=== PATIENT | male | born 1980 ===

== ENCOUNTER 2021-09-11 14:21 | Emergency (ER) | payer OTHER ==
--- NOTE | 2021-09-11 14:47 | Emergency Department Report ---
ED General Adult HPI - General Chief complaint: Extremity Injury, Lower Stated complaint: foot Time Seen by Provider: 09/11/21 14:36 Source: patient Mode of arrival: Ambulatory Limitations: No Limitations - History of Present Illness Initial comments: 40-year-old -Martiniquais male patient presents with complaints of left foot pain x3 months. He denies any injury, numbness/tingling/weakness, or fever/chills/sweats. No past medical history per patient including diabetes. He rates his pain as a 9/10 in severity and states he has been unable to wear closed foot shoes since the onset of his pain. He is not currently following with a PCP or ranch hand. No prior medical history per patient. Ibuprofen and Tylenol are not helping per patient. - Related Data Previous Rx's Medication Instructions Recorded Last Taken Type Acetaminophen/Codeine [Tylenol 1 tab PO Q8H PRN #6 tab 09/11/21 Unknown Rx /Codeine # 3 tab] Doxycycline Monohydrate 100 mg PO BID 10 Days #20 capsule 09/11/21 Unknown Rx Naproxen 500 mg PO BID PRN #20 tablet 09/11/21 Unknown Rx Allergies Allergy/AdvReac Type Severity Reaction Status Date / Time No Known Allergies Allergy Verified 02/05/16 00:37 ED Review of Systems ROS: Stated complaint: foot Other details as noted in HPI Constitutional: denies: chills, fever Musculoskeletal: arthralgia Neurological: denies: numbness, paresthesias ED Past Medical Hx - Past Medical History Hx Psychiatric Treatment: Yes - Social History Smoking Status: Current Every Day Smoker Substance Use Type: Alcohol, Cocaine - Medications Home Medications: Home Medications Medication Instructions Recorded Confirmed Last Taken Type Acetaminophen/Codeine [Tylenol 1 tab PO Q8H PRN #6 tab 09/11/21 Unknown Rx /Codeine # 3 tab] Doxycycline Monohydrate 100 mg PO BID 10 Days #20 capsule 09/11/21 Unknown Rx Naproxen 500 mg PO BID PRN #20 tablet 09/11/21 Unknown Rx ED Physical Exam - General Limitations: No Limitations General appearance: alert, in no apparent distress - Head Head exam: Present: atraumatic, normocephalic - Eye Eye exam: Present: normal appearance. Absent: scleral icterus - Respiratory Respiratory exam: Absent: respiratory distress - Cardiovascular Cardiovascular Exam: Present: regular rate - Expanded Lower Extremity Exam Left Foot/Toe exam: Present: tenderness (Tender callus noted to lateral fifth MCP joint with mild erythema; no cellulitic changes are noted or drainage/obvious deformities) Neuro vascular tendon exam: Present: no vascular compromise. Absent: pulse deficit, motor deficit, sensory deficit, pallor Gait: Positive: antalgic (Mildly ) - Neurological Exam Neurological exam: Present: alert, oriented X3 - Psychiatric Psychiatric exam: Present: normal affect, normal mood - Skin Skin exam: Present: warm, dry, intact ED Course Vital Signs 09/11/21 09/11/21 14:27 17:10 Temperature 98.1 F 98.3 F Pulse Rate 107 H 88 Respiratory 16 16 Rate Blood Pressure 127/84 Blood Pressure 103/76 [Right] O2 Sat by Pulse 100 98 Oximetry ED Medical Decision Making - Radiology Data Radiology results: report reviewed LEFT FOOT 3 VIEWS INDICATION / CLINICAL INFORMATION: 5th MTP pain x 3 months. [place]-like area on soft tissue, painful, cannot wear closed shoes. COMPARISON: None available. FINDINGS: BONES / JOINT(S): The joint spaces are well-maintained. There is a small spur a t the insertion of the Achilles tendon on the calcaneus. There is no evidence of acute fracture, subluxation or destructive lesion. SOFT TISSUES: There is localized soft tissue swelling along the lateral margin of the fifth metatarsophalangeal joint. No abnormal calcification is present. ADDITIONAL FINDINGS: None. - Medical Decision Making 40-year-old -Martiniquais male patient presents with complaints of left foot pain x3 months. He denies any injury, numbness/tingling/weakness, or fever/chills/sweats. No past medical history per patient including diabetes. He rates his pain as a 9/10 in severity and states he has been unable to wear closed foot shoes since the onset of his pain. He is not currently following with a PCP or ranch hand. No prior medical history per patient. Ibuprofen and Tylenol are not helping per patient. Mildly erythemic callus noted on exam with tenderness to palpation. X-rays negative for any acute bony abnormality however shows some soft tissue swelling. Exam does not appear to be consistent with cellulitis, however given mild erythema and soft tissue swelling noted on x-ray, will cover for infection with doxycycline. Recommend patient follows up with podiatry for further evaluation and treatment of callus. He is otherwise well-appearing, his vitals are normal, he is stable for discharge home. Strict return precautions were discussed in detail with patient who verbalizes understanding. Critical care attestation.: If time is entered above; I have spent that time in minutes in the direct care of this critically ill patient, excluding procedure time. ED Disposition Clinical Impression: Left foot pain, Foot callus Disposition: HOME / SELF CARE / HOMELESS Is pt being admited?: No Condition: Stable Prescriptions: Doxycycline Monohydrate 100 mg PO BID 10 Days #20 capsule Naproxen 500 mg PO BID PRN #20 tablet PRN Reason: pain Acetaminophen/Codeine [Tylenol /Codeine # 3 tab] 1 tab PO Q8H PRN #6 tab PRN Reason: Pain , Severe (7-10) Referrals: GRABIEL SANTA DPM [Staff Physician] - 3-5 Days
--- NOTE | 2021-09-11 15:20 | XRay Report ---
LEFT FOOT 3 VIEWS INDICATION / CLINICAL INFORMATION: 5th MTP pain x 3 months. [place]-like area on soft tissue, painful, c annot wear closed shoes. COMPARISON: None available. FINDINGS: BONES / JOINT(S): The joint spaces are well-maintained. There is a small spur at the insertion of the Achilles tendon on the calcaneus. There is no evidence of acute fracture, subluxation or destructive lesion. SOFT TISSUES: There is localized soft tissue swelling along the lateral margin of the fifth metatarso phalangeal joint. No abnormal calcification is present. ADDITIONAL FINDINGS: None. Signer Name: Geoff Bentley MD Signed: 09/11/2021 3:16 PM Workstation Name: [id number]
[2021-09-11] MEDS ORDERED: KETOROLAC 10 MG TAB PO ONE (17:09)
[2021-09-11 17:15] VITALS: BP 103/76
== END 2021-09-11 17:16 | disposition home or self-care (01) ==
LOC: ED 14:21
DX: L84 Corns and callosities (principal); F17.200 Nicotine dependence, unspecified, uncomplicated; F14.90 Cocaine use, unspecified, uncomplicated; Z72.89 Other problems related to lifestyle; Z79.899 Other long term (current) drug therapy
CPT/HCPCS: 99283